=== PATIENT | female | born 2005 | race Caucasian/White ===

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

== ENCOUNTER 2025-03-12 07:18 | Emergency (ER) | payer OTHER, SELFPAY ==
--- OUTSIDE RECORDS SUMMARY | 2025-03-09 09:30 | XMS_ITS | Encounter Summary ---
Author Organization [facility] Address [address] [place] [address] Care Team Providers Care Lawn Care Specialist Name Role Phone Christian Soto MD Primary Care Provider Reason for Visit * Reason Comments Consult New patient * Consultation (Routine) - Authorized Specialty Diagnoses / Procedures Referred By Jostin madrigal Referred To Contact Family Nutrition Services / Bariatrics Diagnoses Obesity without serious comorbidity with body mass index (BMI) greater than 99th percentile for age in pediatric patient Sherry Long MD [address] [place] [address] Phone: tel: fax: Bariatric Surgery - [address] [address] Phone: tel: fax: Referral ID Status Reason Start Date Expiration Date Visits Requested Visits Authorized [id number] Authorized Specialty Services Required 06/03/2024 06/03/2025 1 1 Encounter Details Date Type Department Care Team ([facility] st Contact Info) Description 03/09/2025 9:30 AM EST Consult Bariatric Surgery - [address] [address] Nico Garrison MD [address] [place] [phone] Class 2 obesity due to excess calories with body mass index (BMI) of 36.0 to 36.9 in adult, unspecified whether serious comorbidity present (Primary Dx) Social History Tobacco Use Types Packs/Day Years Used Date Smoking Tobacco: Never Smokeless Tobacco: Never Comments No Sex and Gender Information Value Date Recorded Sex Assigned at Not on file Legal Sex Female 1:35 PM EST Gender Identity Not on file Sexual Orientation Not on file documented as of this encounter Last Filed Vital Signs Vital Sign Reading Time Taken Comments Blood Pressure 133/73 03/09/2025 9:48 AM EST Pulse 85 03/09/2025 9:48 AM EST Temperature 36.8 C (98.2 F) 03/09/2025 9:48 AM EST Respiratory Rate - - Oxygen Saturation - - Inhaled Oxygen Concentration - - Weight 98 kg (216 lb) 03/09/2025 9:48 AM EST Height 163.8 cm (5' 4.5 ) 03/09/2025 9:48 AM EST Body Mass Index 36.5 03/09/2025 9:48 AM EST documented in this encounter Plan of Treatment Upcoming Encounters Date Type Department Care Team (Late st Contact Info) Description 06/06/2025 8:00 AM EDT Office Visit Adult Medicine [facility] [address] [place] [address] Gunjan Medina PA [address] [place], [place] 09/19/2025 3:30 PM EDT Office Visit Bariatric Surgery - [address] [place] [address] Nico Garrison MD [address] [place] [phone] documented as of this encounter Results * Thyroid stimulating hormone (03/09/2025 10:06 AM EST) TSH 2.35 0.40 - 4.00 mcIU/mL 03/09/2025 2:36 PM EST [facility] Blood Venous blood specimen / Unknown Venipuncture / Unknown 03/09/2025 10:06 AM EST 03/09/2025 10:06 AM EST Nico Garrison MD LAB BLOOD ORDERABLES Final R esult [facility] [address] [place] [address], [place] [phone] * Hemoglobin A1c (03/09/2025 10:06 AM EST) [facility] Hemoglobin A1C 4.5 <6.5 % LAB CHEMISTRY METHOD 03/09/2025 3:16 PM EST [facility] Mean Bld Glu Estim. 82 mg/dL LAB CHEMISTRY METHOD 03/09/2025 3:16 PM [facility] Blood Venous blood specimen / Unknown Venipuncture / Unknown 03/09/2025 10:06 AM EST 03/09/2025 10:06 AM EST us Nico Garrison MD LAB BLOOD ORDERABLES Final R esult Performing Organization Address [facility]/ZIP Co de Phone Number [facility] [address] [place] [address], [place] [phone] * Comprehensive metabolic panel (03/09/2025 10:06 AM EST) [facility] Sodium 139 133 - 145 mmol/L 03/09/2025 2:40 PM [facility] Potassium 4.2 3.5 - 5.5 mmol/L 03/09/2025 2:40 PM [facility] Chloride 105 96 - 110 mmol/L 03/09/2025 2:40 PM [facility] CO2 25 21 - 32 mmol/L 03/09/2025 2:40 PM [facility] Anion Gap 9 3 - 11 03/09/2025 2:40 PM [facility] Glucose 81 70 - 100 mg/dL 03/09/2025 2:40 PM [facility] BUN 11 5 - 25 mg/dL 03/09/2025 2:40 PM [facility] Creatinine 0.88 0.50 - 1.10 mg/dL 03/09/2025 2:40 PM [facility] eGFR 97 >=60 mL/min/1. 73m2 03/09/2025 2:40 PM [facility] Comment:Calculation based on the Chronic Kidney Disease Epidemiology Collaboration (CKD-EPI) equation refit without adjustment for race. BUN/Creatinine Ratio 12.5 03/09/2025 2:40 PM [facility] Calcium 8.8 8.5 - 10.5 mg/dL 03/09/2025 2:40 PM [facility] AST (SGOT) 23 10 - 42 unit/L 03/09/2025 2:40 PM [facility] ALT (SGPT) 21 10 - 60 unit/L 03/09/2025 2:40 PM [facility] Alkaline Phosphatase 66 42 - 121 unit/L 03/09/2025 2:40 PM [facility] Total Protein 7.1 6.0 - 8.0 g/dL 03/09/2025 2:40 PM [facility] Albumin 4.3 3.2 - 5.0 g/dL 03/09/2025 2:40 PM [facility] Total Bilirubin 0.4 0.0 - 1.4 mg/dL 03/09/2025 2:40 PM [facility] Blood Venous blood specimen / Unknown Venipuncture / Unknown 03/09/2025 10:06 AM EST 03/09/2025 10:06 AM EST us Nico Garrison MD LAB BLOOD ORDERABLES Final R esult [facility] [address] [place] [address], [place] [phone] * Lipid panel with reflex to direct LDL (03/09/2025 10:06 AM EST) Cholesterol 128 0 - 200 mg/dL 03/09/2025 2:40 PM [facility] Triglycerides 76 0 - 150 mg/dL 03/09/2025 2:40 PM [facility] HDL 43 >=40 mg/dL 03/09/2025 2:40 PM [facility] LDL Calculated 70 0 - 100 mg/dL 03/09/2025 2:40 PM [facility] Comment:Estimated LDL is rudolph culated using the Friedewald equation: Total cholesterol - HDL cholesterol - (Triglycerides/5) VLDL Cholesterol Rudolph 15.2 mg/dL 03/09/2025 2:40 PM [facility] Non HDL Chol. (LDL+VLDL) 85 <145 mg/dL 03/09/2025 2:40 PM [facility] Chol/HDL Ratio 3.0 0.0 - 4.4 03/09/2025 2:40 PM [facility] Blood Venous blood specimen / Unknown Venipuncture / Unknown 03/09/2025 10:06 AM EST 03/09/2025 10:06 AM EST us Nico Garrison MD LAB BLOOD ORDERABLES Final R esult [facility] [address] [place] [address], documented in this encounter Visit Diagnoses Diagnosis Class 2 obesity due to excess calories with body mass index (BMI) of 36.0 to 36.9 in adult, unspecified whether serious comorbidity present- Primary documented in this encounter Orders Outpatient Referral Count Last Ordered Date Fir st Ordered Date AMB REFERRAL TO WEIGHT MANAGEMENT 1 025 documented in this encounter Additional Health Concerns Assessment Noted Time PHQ-9 Depression Total Score: 16 025 10:00 AM EDT documented as of this encounter Care Teams Lawn Care Specialist Relationship Specialty Start Date End Date Christian Soto MD [address] [place] [phone] PCP - General Internal Medicine 12/19/24 documented as of this encounter
--- OUTSIDE RECORDS SUMMARY | 2025-03-09 10:05 | XMS_ITS | Encounter Summary ---
Author Organization [facility] Address [address] [place] [address] Care Team Providers Care Portuguese Tutor Name Role Phone Christian Soto MD Primary Care Provider Encounter Details Date Type Department Care Team (Late Contact Info) Description 03/09/2025 10:05 AM EST Lab Draw Station - [facility] [address] [place] [address] Class 2 obesity due to excess calories with body mass index (BMI) of 36.0 to 36.9 in adult, unspecified whether serious comorbidity present Social History Tobacco Use Types Packs/Day Years Used Date Smoking Tobacco: Never Smokeless Tobacco: Never Comments No Sex and Gender Information Value Date Recorded Sex Assigned at Not on file Legal Sex Female 1:35 PM EST Gender Identity Not on file Sexual Orientation Not on file documented as of this encounter Plan of Treatment Upcoming Encounters Date Type Department Care Team (Late st Contact Info) Description 06/06/2025 8:00 AM EDT Office Visit Adult Medicine [address] [phone] Gnujan Medina PA [address] [place] [address] 09/19/2025 3:30 PM EDT Office Visit Bariatric Surgery - [place] [address] [facility] [address] [place] [address] Nico Garrison MD [address] [place] [phone] documented as of this encounter Procedures Procedure Name Priority Date/Time Associated Diagnosis Comments LIPID PANEL WITH REFLEX TO DIRECT LDL Routine 03/09/2025 10:06 AM EST Class 2 obesity due to excess calories with body mass index (BMI) of 36.0 to 36.9 in adult, unspecified whether serious comorbidity present THYROID STIMULATING HORMONE Routine 03/09/2025 10:06 AM EST Class 2 obesity due to excess calories with body mass index (BMI) of 36.0 to 36.9 in adult, unspecified whether serious comorbidity present HEMOGLOBIN A1C Routine 03/09/2025 10:06 AM EST Class 2 obesity due to excess calories with body mass index (BMI) of 36.0 to 36.9 in adult, unspecified whether serious comorbidity present COMPREHENSIVE METABOLIC PANEL Routine 03/09/2025 10:06 AM EST Class 2 obesity due to excess calories with body mass index (BMI) of 36.0 to 36.9 in adult, unspecified whether serious comorbidity present documented in this encounter Results * Lipid panel with reflex to direct LDL (03/09/2025 10:06 AM EST) Cholesterol 128 0 - 200 mg/dL 03/09/2025 2:40 PM [facility] Triglycerides 76 0 - 150 mg/dL 03/09/2025 2:40 PM [facility] HDL 43 >=40 mg/dL 03/09/2025 2:40 PM [facility] LDL Calculated 70 0 - 100 mg/dL 03/09/2025 2:40 PM [facility] Comment:Estimated LDL is rudolph culated using the Friedewald equation: Total cholesterol - HDL cholesterol - (Triglycerides/5) VLDL Cholesterol Rudolph 15.2 mg/dL 03/09/2025 2:40 PM [facility] Non HDL Chol. (LDL+VLDL) 85 <145 mg/dL 03/09/2025 2:40 PM [facility] Chol/HDL Ratio 3.0 0.0 - 4.4 03/09/2025 2:40 PM [facility] Blood Venous blood specimen / Unknown Venipuncture / Unknown 03/09/2025 10:06 AM EST 03/09/2025 10:06 AM EST us Nico Garrison MD LAB BLOOD ORDERABLES Final R esult [facility] [address] [place] [address], * Comprehensive metabolic panel (03/09/2025 10:06 AM EST) Sodium 139 133 - 145 mmol/L 03/09/2025 2:40 PM [facility] Potassium 4.2 3.5 - 5.5 mmol/L 03/09/2025 2:40 PM [facility] Chloride 105 96 - 110 mmol/L 03/09/2025 2:40 PM [facility] CO2 25 21 - 32 mmol/L 03/09/2025 2:40 PM [facility] Anion Gap 9 3 - 11 03/09/2025 2:40 PM [facility] Glucose 81 70 - 100 mg/dL 03/09/2025 2:40 PM [facility] BUN 11 5 - 25 mg/dL 03/09/2025 2:40 PM [facility] Creatinine 0.88 0.50 - 1.10 mg/dL 03/09/2025 2:40 PM [facility] eGFR 97 >=60 mL/min/1. 73m2 03/09/2025 2:40 PM [facility] Comment:Calculation based on the Chronic Kidney Disease Epidemiology Collaboration (CKD-EPI) equation refit without adjustment for race. BUN/Creatinine Ratio 12.5 03/09/2025 2:40 PM [facility] Calcium 8.8 8.5 - 10.5 mg/dL 03/09/2025 2:40 PM [facility] AST (SGOT) 23 10 - 42 unit/L 03/09/2025 2:40 PM [facility] ALT (SGPT) 21 10 - 60 unit/L 03/09/2025 2:40 PM [facility] Alkaline Phosphatase 66 42 - 121 unit/L 03/09/2025 2:40 PM [facility] Total Protein 7.1 6.0 - 8.0 g/dL 03/09/2025 2:40 PM [facility] Albumin 4.3 3.2 - 5.0 g/dL 03/09/2025 2:40 PM [facility] Total Bilirubin 0.4 0.0 - 1.4 mg/dL 03/09/2025 2:40 PM [facility] Blood Venous blood specimen / Unknown Venipuncture / Unknown 03/09/2025 10:06 AM EST 03/09/2025 10:06 AM EST us Nico Garrison MD LAB BLOOD ORDERABLES Final R esult [facility] [address] [place] [address], * Hemoglobin A1c (03/09/2025 10:06 AM EST) Hemoglobin A1C 4.5 <6.5 % LAB CHEMISTRY METHOD 03/09/2025 3:16 PM [facility] Mean Bld Glu Estim. 82 mg/dL LAB CHEMISTRY METHOD 03/09/2025 3:16 PM [facility] Blood Venous blood specimen / Unknown Venipuncture / Unknown 03/09/2025 10:06 AM EST 03/09/2025 10:06 AM EST us Nico Garrison MD LAB BLOOD ORDERABLES Final R esult Performing Organization Address City/[facility]/ZIP Co de Phone Number [facility] [address] [place] [address], [place] [phone] * Thyroid stimulating hormone (03/09/2025 10:06 AM EST) TSH 2.35 0.40 - 4.00 mcIU/mL 03/09/2025 2:36 PM EST [facility] Blood Venous blood specimen / Unknown Venipuncture / Unknown 03/09/2025 10:06 AM EST 03/09/2025 10:06 AM EST Nico Garrison MD LAB BLOOD ORDERABLES Final R esult Performing Organization Address City/[facility]/ZIP Co de Phone Number [facility] [address] [place] [address], [place] [phone] documented in this encounter Visit Diagnoses Diagnosis Class 2 obesity due to excess calories with body mass index (BMI) of 36.0 to 36.9 in adult, unspecified whether serious comorbidity present documented in this encounter Additional Health Concerns Assessment Noted Time PHQ-9 Depression Total Score: 16 0314/2 025 10:00 AM EDT documented as of this encounter Care Teams Portuguese Tutor Relationship Specialty Start Date End Date Christian Soto MD [address] [place] [phone] PCP - General Internal Medicine 12/19/24 documented as of this encounter
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
[2025-03-12 07:22] VITALS: BP 118/55; PULSE 78; RESP 16; TEMP 35.8; O2SAT 100; BMI 45.0
[2025-03-12 07:34] VITALS: BP 118/64; PULSE 84; RESP 16; TEMP 36.8; O2SAT 99
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
--- OUTSIDE RECORDS SUMMARY | 2025-03-12 08:06 | XMS_ITS ---
Author Name [facility] Organization Unknown Care Team Organization Name Specialty Phone Email Start Date End Da te [facility] Sherry Long Primary Care 12/24/20222023 [facility] Travis Davila Primary Care 05/28/20222023 [facility] Jeanne Patel Primary Care 01/28/20222023
--- OUTSIDE RECORDS SUMMARY | 2025-03-12 08:06 | XMS_ITS | Clinical Summary ---
Author Organization [facility] Address [address] [place] [phone] Phone Care Team Providers Care Wafer Line Worker Name Role Phone Unavailable Primary Care Provider [...] Vaccine (1 of 2 - Standard) 2021 Meningococcal Vaccine (1 - 2 -dose series) 2021 Influenza Vaccines (#1) 2024 11/21/19 16, 03/14/2015, 12/16/2013, Additional history exists COVID-19 Vaccine ( - 2024-2 6 season) 2024 Hepatitis B Vaccines Completed 05/08/2006, 01/21/2006, 2005, Additional history exists HIB Vaccines Completed 10/16/2006, 04/23, 01/21/2006, Additional history exists Hepatitis A Vaccines Completed 10/01/2007, 08/06/19 07 IPV Vaccines Completed 06/11/2010, 04/23, 01/21/2006, Additional history exists MMR Vaccines Completed 06/11/2010, 08/05/2006 Pneumococcal Vaccine Completed 06/11/2010, 10/16/2006, 05/08/2006, Additional history exists Varicella Vaccines Completed 06/11/2010, 08/05/2006 Insurance [facility] NON PCC
--- OUTSIDE RECORDS SUMMARY | 2025-03-12 08:06 | XMS_ITS | Encounter Summary ---
Author Organization [facility] Address [address] [place] [phone] Care Team Providers Care Straightening Machine Operator Name Role Phone Christian Soto MD Primary Care Provider Encounter Details Date Type Department Care Team (Late Contact Info) Description 03/10/2025 Results Follow-Up Adult [address] [phone] Christian Soto MD [address] [place] [address] Social History Tobacco Use Types Packs/Day Years Used Date Smoking Tobacco: Never Smokeless Tobacco: Never Comments No Sex and Gender Information Value Date Recorded Sex Assigned at Not on file Legal Sex Female 1:35 PM EST Gender Identity Not on file Sexual Orientation Not on file documented as of this encounter Plan of Treatment Upcoming Encounters Date Type Department Care Team (Late Contact Info) Description 06/06/2025 8:00 AM EDT Office Visit Adult [address] [phone] Gunjan Medina PA [address] [place], [place] 09/19/2025 3:30 PM EDT Office Visit Bariatric Surgery - [address] [phone] Nico Garrison MD [address] [place] [phone] documented as of this encounter Visit Diagnoses Not on filedocumented in this encounter Additional Health Concerns Assessment Noted Time PHQ-9 Depression Total Score: 16 06/03/ 025 10:00 AM EDT documented as of this encounter Care Teams Straightening Machine Operator Relationship Specialty Start Date End Date Christian Soto MD [address] [place] [address] PCP - General Internal Medicine 12/19/24 documented as of this encounter
--- OUTSIDE RECORDS SUMMARY | 2025-03-12 08:06 | XMS_ITS | Encounter Summary ---
Author Organization [facility] Address [address] [place] [phone] Phone Care Team Providers Care Quick Mixer Operator Name Role Phone Vivienne Jenkins NP Primary Care Provider Nurys tinoco Encounter Details Date Type Department Care Team (Late st Contact Info) Description 12/26/2015 Documentation EM Family Medicine [facility] [place] [address] Family Medicine, Physician [facility] [place] [address] Social History Tobacco Use Types Packs/Day Years [...] on filedocumented in this encounter Care Teams Quick Mixer Operator Relationship Specialty Start Date End Date Vivienne Jenkins NP PCP - General 10/31/16 06/04/22 documented as of this encounter
--- OUTSIDE RECORDS SUMMARY | 2025-03-12 08:06 | XMS_ITS | Encounter Summary ---
Author Organization [facility] Address [address] [place] [phone] Phone Care Team Providers Care Boiler Water Tester Name Role Phone Vivienne Jenkins NP Primary Care Provider Nurys tinoco Encounter Details Date Type Department Care Team (Late st Contact Info) Description 03/29/2014 Documentation EM Family Medicine [facility] [place], [place] [phone] Family Medicine, Physician [facility] [place] [address] Social History Tobacco Use Types Packs/Day Years [...] on filedocumented in this encounter Care Teams Boiler Water Tester Relationship Specialty Start Date End Date Vivienne Jenkins NP PCP - General 10/31/16 06/04/22 documented as of this encounter
--- OUTSIDE RECORDS SUMMARY | 2025-03-12 08:06 | XMS_ITS | Encounter Summary ---
Author Organization [facility] Address [address] [place] [phone] Phone Care Team Providers Care Atomizer Assembler Name Role Phone Vivienne Jenkins NP Primary Care Provider Nurys tinoco Encounter Details Date Type Department Care Team (Late st Contact Info) Description 08/18/2009 Documentation EM Family Medicine [facility] [place] [address] Family Medicine, Physician [facility] [place] [address] Social History Tobacco Use Types Packs/Day Years [...] on filedocumented in this encounter Care Teams Atomizer Assembler Relationship Specialty Start Date End Date Vivienne Jenkins NP PCP - General 10/31/16 06/04/22 documented as of this encounter
--- OUTSIDE RECORDS SUMMARY | 2025-03-12 08:06 | XMS_ITS | Encounter Summary ---
Author Organization [facility] Address [address] [place] [phone] Phone Care Team Providers Care Life Agent Name Role Phone Vivienne Jenkins NP Primary Care Provider Nurys tinoco Encounter Details Date Type Department Care Team (Late st Contact Info) Description 11/30/2015 Documentation EM Family Medicine [facility] [place], [place] [phone] Family Medicine, Physician [facility] [place] [address] Social History Tobacco Use Types Packs/Day Years [...] on filedocumented in this encounter Care Teams Life Agent Relationship Specialty Start Date End Date Vivienne Jenkins NP PCP - General 10/31/16 06/04/22 documented as of this encounter
--- OUTSIDE RECORDS SUMMARY | 2025-03-12 08:06 | XMS_ITS | Encounter Summary ---
Author Organization [facility] Address [address] [place] [address] Phone Care Team Providers Care Pull Out Operator Name Role Phone Vivienne Jenkins NP Primary Care Provider Nurys tinoco Encounter Details Date Type Department Care Team (Late st Contact Info) Description 09/07/2012 Documentation EM Family Medicine [facility] [place], [place] [phone] Family Medicine, Physician [facility] [place] [address] Social History Tobacco Use Types Packs/Day Years [...] on filedocumented in this encounter Care Teams Pull Out Operator Relationship Specialty Start Date End Date Vivienne Jenkins NP PCP - General 10/31/16 06/04/22 documented as of this encounter
--- OUTSIDE RECORDS SUMMARY | 2025-03-12 08:06 | XMS_ITS | Encounter Summary ---
Author Organization [facility] Address [address] [place] [address] Phone Care Team Providers Care Mica Spreader Name Role Phone Vivienne Jenkins NP Primary Care Provider Nurys tinoco Encounter Details Date Type Department Care Team (Late st Contact Info) Description 12/26/2015 Documentation EM Family Medicine [facility] [place] [address] Family Medicine, Physician [facility] [address] Social History Tobacco Use Types Packs/Day Years [...] on filedocumented in this encounter Care Teams Mica Spreader Relationship Specialty Start Date End Date Vivienne Jenkins NP PCP - General 10/31/16 06/04/22 documented as of this encounter
--- OUTSIDE RECORDS SUMMARY | 2025-03-12 08:06 | XMS_ITS | Encounter Summary ---
Author Organization [facility] Address [id number] [place] [phone] Care Team Providers Care Darkroom Worker Name Role Phone Christian Soto MD Primary Care Provider Encounter Details Date Type Department Care Team (Late Contact Info) Description 01/19/2025 Results Follow-Up Adult [address] [phone] Christian Soto MD [address] [place] [address] Social History Tobacco Use Types Packs/Day Years [...] 06/06/2025 8:00 AM EDT Office Visit Adult [address] [phone] Gunjan Medina PA [address] [place], [place] 09/19/2025 3:30 PM EDT Office Visit Bariatric Surgery - [address] [phone] Nico Garrison MD [address] [place] [phone] documented as of this encounter Visit Diagnoses Not on filedocumented in this encounter Additional Health Concerns Assessment Noted Time PHQ-9 Depression Total Score: 16 06/03/ 025 10:00 AM EDT documented as of this encounter Care Teams Darkroom Worker Relationship Specialty Start Date End Date Christian Soto MD [address] [place] [phone] PCP - General Internal Medicine 12/19/24 documented as of this encounter
--- OUTSIDE RECORDS SUMMARY | 2025-03-12 08:06 | XMS_ITS | Clinical Summary ---
Author Organization [address] Address [address] [place] [phone] Phone Care Team Providers Care Electric Truck Crane Operator Name Role Phone Christian Soto MD Primary Care Provider Allergies Active Allergy Reactions Criticality Noted Date Comments Pineapple Swelling 09/21/2017 Medications EPINEPHrine (EpiPen 2-Wilfred) 0.3 mg/0.3 mL injection Inject 0.3 mL (0.3 mg total) into the thigh if needed for anaphylaxis . 2 each 06/03/2024 Active ondansetron (ZOFRAN) 4 mg tablet Take 1 tablet (4 mg total) by mouth every 8 (eight) hours if needed for nausea or vomiting. 90 tablet 01/06/2025 Active Active Problems Problem Noted Date Diagnosed [...] should be seen in [facility] Hgba1c 5.4 on 11/07 Constipation 09/21/2017 Overview (05/25/2024): 11/07 - occastionally only now, miralax prn 03/10/16 - Miralax. Increase fiber in diet, encourage fluids Assessment & Plan (06/03/2024 11:29 AM EDT): Continues to have constipation. Request refill for MiraLAX. Encounters Date Type Department Care Team Description 03/10/2025 Results Follow-Up Adult [address] [phone] Christian Soto MD 03/09/2025 10:05 AM EST Lab Draw Station - [address] [place] [address] 175 [facility] [address] [place] [phone] Class 2 obesity due to excess calories with body mass index (BMI) of 36.0 to 36.9 in adult, unspecified whether serious comorbidity present 03/09/2025 9:30 AM EST Consult Bariatric Surgery - [place] [address] [facility] [address] [place] [phone] Nico Garrison MD Class 2 obesity due to excess calories with body mass index (BMI) of 36.0 to 36.9 in adult, unspecified whether serious comorbidity present (Primary Dx) 01/19/2025 Results Follow-Up Adult [address] [phone] Christian Soto MD 01/19/2025 Telephone Adult Medicine [address] [phone] Christian Soto MD 01/18/2025 9:09 AM EDT - 01/18/2025 11:59 PM EDT Hospital Encounter [facility] Nuclear Medicine [address] [place] [phone] Epigastric pain; RUQ abdominal pain; Nausea and vomiting, unspecified vomiting type Discharge Disposition: Home or Self Care 01/06/2025 10:30 AM EDT Office Visit Adult Medicine [address] [phone] Christian Soto MD Epigastric pain (Primary Dx); RUQ abdominal pain; Nausea and vomiting, unspecified vomiting type; Class 2 obesity due to excess calories with body mass index (BMI) of 37.0 to 37.9 in adult, unspecified whether serious comorbidity present 12/19/2024 Telephone Adult Medicine [address] [phone] Christian Soto MD 12/15/2024 Telephone Pediatrics [address] [phone] Sherry Long MD from Last 3 Months Immunizations Immunization Administration Dates Next Due DTaP (Infanrix) 6wks to less than 7yo ,10/16/2006,05/08/2006,01/21,2005 IIzO-MWC-DHE (Pentacel) 2mo to less than 5yo 10/16/2006,05/08/2006,01/21/2006,09/24 [...] eservative (Fluzone; Afluria) 6mo and older 11/21/2015,03/14/2015,12/16/2013,07/20,04/14/2012,06/24/2011,01/10/2009 ,12/30/2007,05/20/2007,01/15/2007,1103/2005 MMR, measles mumps and rubel la Live [...] any issues. PCP requested a copy of IEP Acanthosis nigricans 09/21/2017 DX:Acanthos is nigricans; COMMENT: 11/21/15 ? Insulin resistance - should be seen in [facility] BMI (body mass index), pedia tric, > [...] 08/2014 Bactrim, 2011 ? Pyelonephritis- seen at [facility]. Ceftriaxone. Never went to see Urologist. Was referred to [facility]ist but never made it there either [...] pain 12/14/2017 DX:Chronic an kle pain; COMMENT: 9/18 referred to elyse Willis on 11/19/2017 UTI (urinary tract infection) 09/21/2017 DX :UTI (urinary tract infection); COMMENT: 11/07 no UTI in past 3+ yrs 08/2014 Bactrim, 2012 ? Pyelonephritis- seen at [facility]. Ceftriaxone. Never went to see Urologist. Was referred to [facility]ist but never made it there either [...] Sister 2 Desaray Relation Name Status Comments [place] Ha Alive Father Maternal Grandmother Mother Mother's side M Aunt Sister 1 Casandr Alive Sister 2 Desaray Alive Social History Tobacco Use Types Packs/Day Years Used Date Smoking Tobacco: Never Smokeless Tobacco: Never Tobacco Cessation:Counseling Given: Not Answered Comments No Sex and Gender Information Value Date Recorded Sex Assigned at Not on file Legal Sex Female 1:35 PM EST Gender Identity Not on file Sexual Orientation Not on file Growth Chart Information Age Height Weight Nouljd-zpb-hryz th Percentile BMI Percentile Head Circum Head Circum Percentile Date 19 years 163.8 cm (5' 4.5 ) 98 kg (216 lb) 97.43%* 2024 19 years 162.6 cm (5' 4 ) 99.1 kg (218 lb 6.4 oz) 97.89%* 2024 18 years 163.1 cm (5' 4.21 ) [...] (176 lb 9.6 oz) 99.26%* 2017 * CDC (Girls, 2-20 Years) Last Filed Vital Signs Vital Sign Reading Time Taken Comments Blood Pressure 133/73 03/09/2025 9:48 AM EST Pulse 85 03/09/2025 9:48 AM EST Temperature 36.8 C (98.2 F) 03/09/2025 9:48 AM EST Respiratory Rate 15 01/06/2025 10:28 AM EDT Oxygen Saturation 98% 01/06/2025 10:28 AM EDT Inhaled Oxygen Concentration - - Weight 98 kg (216 lb) 03/09/2025 9:48 AM EST Height 163.8 cm (5' 4.5 ) 03/09/2025 9:48 AM EST Body Mass Index 36.5 03/09/2025 9:48 AM EST Plan of Treatment Upcoming Encounters Date Type Department Care Team (Late st Contact Info) Description 06/06/2025 8:00 AM EDT Office Visit Adult Medicine [facility] [address] [place], [place] [phone] Gunjan Medina PA [address] [place], [place] 09/19/2025 3:30 PM EDT Office Visit Bariatric Surgery - [address] [place] [phone] Nico Garrison MD [address] [place] [phone] Health Maintenance Due Date Last Done Comments Pneumococcal Vaccine: Pediatrics (0 to 5 Years) and At-Risk Patients (6 to 49 Years) (1 of 1 - PPSV23, PCV20, or PCV21) 07/17/2011 06/11/2010, 10/16/2006, 05/08/2006, Additional history exists [...] 11/04/2027 11/03/2017, 06/11/2010, 10/16/2006, Additional history exists RSV Immunization Adult Patients (1 - 1-dose 75+ series) 2080 Hepatitis B Vaccines Completed 05/08/2006, 05/08/2006, 01/21/2006, [...] in adult, unspecified whether serious comorbidity present NM HEPATOBILIARY SYSTEM IMAGING Routine 01/18/2025 11:02 AM EDT Epigastric pain RUQ abdominal pain Nausea and vomiting, unspecified vomiting type CHLAMYDIA TRACHOMATIS AND NEISSERIA GONORRHOEAE PCR Routine 06/03/2024 9:51 AM EDT Screening for STD (sexually transmitted disease) from Last 3 Months or Most Recently Relevant to Health Maintenance Results * Lipid panel with reflex to direct LDL (03/09/2025 10:06 AM EST) [facility] Signature Cholesterol 128 0 - 200 mg/dL 03/09/2025 2:40 PM EST [facility] Triglycerides 76 0 - 150 mg/dL 03/09/2025 2:40 PM EST [facility] HDL 43 >=40 mg/dL 03/09/2025 2:40 PM [facility] LDL Calculated 70 0 - 100 mg/dL 03/09/2025 2:40 PM EST [facility] Comment:Estimated LDL is rudolph culated using the Friedewald equation: Total cholesterol - HDL cholesterol - (Triglycerides/5) VLDL Cholesterol Rudolph 15.2 mg/dL 03/09/2025 2:40 PM [facility] Non HDL Chol. (LDL+VLDL) 85 <145 mg/dL 03/09/2025 2:40 PM [facility] Chol/HDL Ratio 3.0 0.0 - 4.4 03/09/2025 2:40 PM [facility] Blood Venous blood specimen / Unknown Venipuncture / Unknown 03/09/2025 10:06 AM EST 03/09/2025 10:06 AM EST us Nico Garrison MD LAB BLOOD ORDERABLES Final R esult [facility] [address] [place] [address], * Thyroid stimulating hormone (03/09/2025 10:06 AM EST) TSH 2.35 0.40 - 4.00 mcIU/mL 03/09/2025 2:36 PM EST [facility] Blood Venous blood specimen / Unknown Venipuncture / Unknown 03/09/2025 10:06 AM EST 03/09/2025 10:06 AM EST us Nico Garrison MD LAB BLOOD ORDERABLES Final R esult [facility] [address] [place] [address], [place] [phone] * Hemoglobin A1c (03/09/2025 10:06 AM EST) [facility] Hemoglobin A1C 4.5 <6.5 % LAB CHEMISTRY METHOD 03/09/2025 3:16 PM [facility] Mean Bld Glu Estim. 82 mg/dL LAB CHEMISTRY METHOD 03/09/2025 3:16 PM [facility] Blood Venous blood specimen / Unknown Venipuncture / Unknown 03/09/2025 10:06 AM EST 03/09/2025 10:06 AM EST Nico Garrison MD LAB BLOOD ORDERABLES Final R esult [facility] [address] [place] [address], [place] [phone] * Comprehensive metabolic panel (03/09/2025 10:06 AM EST) [facility] Sodium 139 133 - 145 mmol/L 03/09/2025 2:40 PM [facility] Potassium 4.2 3.5 - 5.5 mmol/L 03/09/2025 2:40 PM [facility] Chloride 105 96 - 110 mmol/L 03/09/2025 2:40 PM [facility] CO2 25 21 - 32 mmol/L 03/09/2025 2:40 PM [facility] Anion Gap 9 3 - 11 03/09/2025 2:40 PM [facility] Glucose 81 70 - 100 mg/dL 03/09/2025 2:40 PM [facility] BUN 11 5 - 25 mg/dL 03/09/2025 2:40 PM [facility] Creatinine 0.88 0.50 - 1.10 mg/dL 03/09/2025 2:40 PM [facility] eGFR 97 >=60 mL/min/1. 73m2 03/09/2025 2:40 PM [facility] Comment:Calculation based on the Chronic Kidney Disease Epidemiology Collaboration (CKD-EPI) equation refit without adjustment for race. BUN/Creatinine Ratio 12.5 03/09/2025 2:40 PM [facility] Calcium 8.8 8.5 - 10.5 mg/dL 03/09/2025 2:40 PM [facility] AST (SGOT) 23 10 - 42 unit/L 03/09/2025 2:40 PM [facility] ALT (SGPT) 21 10 - 60 unit/L 03/09/2025 2:40 PM [facility] Alkaline Phosphatase 66 42 - 121 unit/L 03/09/2025 2:40 PM [facility] Total Protein 7.1 6.0 - 8.0 g/dL 03/09/2025 2:40 PM [facility] Albumin 4.3 3.2 - 5.0 g/dL 03/09/2025 2:40 PM [facility] Total Bilirubin 0.4 0.0 - 1.4 mg/dL 03/09/2025 2:40 PM [facility] Blood Venous blood specimen / Unknown Venipuncture / Unknown 03/09/2025 10:06 AM EST 03/09/2025 10:06 AM EST us Nico Garrison MD LAB BLOOD ORDERABLES Final R esult [facility] [address] [place] [address], [place] [phone] * NM Hepatobiliary System Imaging (01/18/2025 11:02 AM EDT) Anatomical Region Laterality Modality Body Nuclear Medicine 01/18/2025 3:37 PM EDT Impressions 01/18/2025 3:39 PM EDT Impression: No evidence of cystic or common bile duct obstruction. Telerad INESSA ([id number]) -------- FINAL REPORT -------- Dictated By: Jojo Naranjo Dictated Date: 01/18/2025 15:37 ET Assigned Physician: Jojo Naranjo Reviewed and Electronically Signed By: Jojo Naranjo Signed Date: 01/18/2025 15:39 ET Workstation ID: [id number] Transcribed By: Self Edit Transcribed Date: 01/18/2025 15:37 ET Narrative 01/18/2025 3:39 PM EDT History: Intermittent right upper quadrant pain. Technique: Continuous anterior imaging of the abdomen was performed for 60 minutes following the intravenous administration of 4.6 mCi technetium 99m Choletec. Findings: The initial image demonstrates a normal, homogeneous pattern of radiotracer distribution throughout the liver. Activity is seen within the bile ducts by 5 minutes, within the gallbladder by 5 minutes, and within the small bowel by 30 minutes. There is normal washout of hepatic activity. Procedure Note Jojo Naranjo MD - 01/18/2025 History: Intermittent right upper quadrant pain. Technique: Continuous anterior imaging of the abdomen was performed for 60minutes following the intravenous administration of 4.6 mCi technetium 99mCholetec. Findings: The initial image demonstrates a normal, homogeneous pattern ofradiotracer distribution throughout the liver. Activity is seen within thebile ducts by 5 minutes, within the gallbladder by 5 minutes, and withinthe small bowel by 30 minutes. There is normal washout of hepatic activity. IMPRESSION: Impression: No evidence of cystic or common bile duct obstruction. Telestacie WYLIE ([id number]) -------- FINAL REPORT -------- Dictated By: Jojo Naranjo Dictated Date: 01/18/2025 15:37 ET Assigned Physician: Jojo Naranjo Reviewed and Electronically Signed By: Jojo Naranjo Signed Date: 01/18/2025 15:39 ET Workstation ID: [id number] Transcribed By: Self Edit Transcribed Date: 01/18/2025 15:37 ET us Christian Soto MD IMG NM PROCEDURES Elizabeth l Result * (ABNORMAL) Chlamydia trachomatis and Neisseria gonorrhoeae molecular study (06/03/2024 9:51 AM EDT) Neisseria gonorrhoeae PCR Negative Negative LAB MOLECULAR DIAGNOSTICS METHOD 06/05/2024 3:16 PM EDT [facility] Chlamydia trachomatis PCR Positive(A) Negative LAB MOLECULAR DIAGNOSTICS METHOD 06/05/2024 3:16 PM EDT [facility] Swab Urine specimen from urethra / Unknown Non-blood Collection / Unknown 06/03/2024 9:51 AM EDT 06/03/2024 9:51 AM EDT us Sherry Long MD LAB MICROBIOLOGY - GENERAL CHAVEZ VALENTINO Final Result [facility] [address] [place] [address], from Last 3 Months or Most Recently Relevant to Health Maintenance Insurance [facility] [employer] Care Teams Electric Truck Crane Operator Relationship Specialty Start Date End Date Christian Soto MD [address] [place], [place] PCP - General Internal Medicine 12/19/24
--- OUTSIDE RECORDS SUMMARY | 2025-03-12 08:06 | XMS_ITS | Encounter Summary ---
Author Organization [facility] Address [address] [place] [phone] Phone Care Team Providers Care Publication Manager Name Role Phone Vivienne Jenkins NP Primary Care Provider Nurys tinoco Encounter Details Date Type Department Care Team (Late st Contact Info) Description 03/28/2014 Documentation EM Family Medicine [facility] [place], [place] [phone] Family Medicine, Physician [facility] [place] [address] Social History Tobacco Use Types Packs/Day Years [...] on filedocumented in this encounter Care Teams Publication Manager Relationship Specialty Start Date End Date Vivienne Jenkins NP PCP - General 10/31/16 06/04/22 documented as of this encounter
--- OUTSIDE RECORDS SUMMARY | 2025-03-12 08:06 | XMS_ITS | Encounter Summary ---
Author Organization [facility] Address [address] [place] [phone] Phone Care Team Providers Care Coal Digger Name Role Phone Vivienne Jenkins NP Primary Care Provider Nurys tinoco Encounter Details Date Type Department Care Team (Late st Contact Info) Description 11/06/2016 Conversion Encounter [facility] - [address] [address] Social History Tobacco Use Types Packs/Day Years [...] on filedocumented in this encounter Care Teams Coal Digger Relationship Specialty Start Date End Date Vivienne Jenkins NP PCP - General 10/31/16 06/04/22 documented as of this encounter
--- NOTE | 2025-03-12 09:34 | PC.NURSE ---
Patient medicated per the MAR for 910 pain. Patient resting quietly, call brenner within reach. Respirations even and unlabored. No signs of distress. Family at the bedside.
[2025-03-12 09:36] LABS: UPreg QC Valid YES
[2025-03-12 09:38] VITALS: BP 116/53; PULSE 67; RESP 18; TEMP 36.7; O2SAT 100
[2025-03-12 10:53] VITALS: BP 116/53; PULSE 67; RESP 18; TEMP 36.7; O2SAT 100
== END 2025-03-12 10:54 | disposition home or self-care (01) ==
PROVIDERS: Registered Nurse Emergency; Emergency Provider Emergency Medicine Emergency Medical Services; PCP Nurse Practitioner Pediatrics
DX: S16.1XXA Strain of muscle, fascia and tendon at neck level, initial encounter (principal); S39.012A Strain of muscle, fascia and tendon of lower back, initial encounter; S70.12XA Contusion of left thigh, initial encounter; S80.12XA Contusion of left lower leg, initial encounter; V43.62XA Car passenger injured in collision with other type car in traffic accident, initial encounter; Y93.89 Activity, other specified; Y92.410 Unspecified street and highway as the place of occurrence of the external cause; Y99.9 Unspecified external cause status
CPT/HCPCS: 70450; 71046; 72072; 72100; 72125; 73552; 73590; 81025; 99284

== ENCOUNTER → 2025-03-12 08:19 | Outpatient (BNV) | payer OTHER, SELFPAY | PROVIDERS: Emergency Provider Emergency Medicine Emergency Medical Services; PCP Nurse Practitioner Pediatrics; Visit Provider Radiology Diagnostic Radiology | DX: M54.2 Cervicalgia (principal); S06.6X9A Traumatic subarachnoid hemorrhage with loss of consciousness of unspecified duration, initial encounter; M54.6 Pain in thoracic spine; M54.50 Low back pain, unspecified; R07.9 Chest pain, unspecified; M79.652 Pain in left thigh; M79.662 Pain in left lower leg; V89.2XXA Person injured in unspecified motor-vehicle accident, traffic, initial encounter | CPT/HCPCS: 70450; 71046; 72072; 72100; 72125; 73552; 73590 ==

== ENCOUNTER 2025-03-19 15:02 | Emergency (ER) | payer OTHER, SELFPAY ==
--- NOTE | ~2025-03-19 | CT_ITS ---
CLINICAL HISTORY: chest wall pain CT chest without contrast Comparison: CR - XR CHEST 2V - 03/12/25 08:48 EST Findings: The heart size is normal. The visualized thyroid and mediastinum are unremarkable. The lungs are clear. The visualized upper abdomen is unremarkable. No acute fractures. IMPRESSION: 1. Unremarkable chest CT. This document has been electronically signed by: Morenita Aden MD on 03/19/2025 19:13:04
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
[2025-03-19 15:16] VITALS: BP 117/58; PULSE 70; RESP 16; TEMP 36.2; O2SAT 99; BMI 37.2
--- NOTE | 2025-03-19 15:17 | ECG_ITS ---
Test Reason : chest pain Blood Pressure : */* mmHG Vent. Rate : 74 BPM Atrial Rate : 74 BPM P-R Int : 122 ms QRS Dur : 76 ms QT Int : 372 ms P-R-T Axes : 19 23 21 degrees QTcB Int : 412 ms Normal sinus rhythm Normal ECG No previous ECGs available Referred By: Yolanda Landa Electronically Signed By: MYRANDA ABRAHAM
[2025-03-19 15:34] LABS: MANUAL DIFF FLAG NO
[2025-03-19 15:36] LABS: Hematocrit 34.9 % (37.0-47.0); Hemoglobin 11.4 g/dl (12.0-16.0); Imm Gran Abs Auto 0.01 X10*3/uL (0.00-0.03); Imm Gran Pct Auto 0.1 % (0.0-0.4); Lymphocytes Absolute Auto 2.9 X10*3/uL (1.2-4.9); Mean Corpuscular HGB Conc 32.7 g/dl (31.0-35.0); Mean Corpuscular Hemoglobin 27.4 pg (27.0-33.0); Mean Corpuscular Volume 83.9 fL (80.0-98.0); NRBC Abs Auto 0.000 X10*3/uL (0.0-0.012); NRBC Pct Auto 0.0 /100WBC (0.0-0.2); Platelet Count 264 X10*3/uL (160-400); Red Blood Count 4.16 X10*6/uL (4.20-5.50); White Blood Count 7.1 X10*3/uL (4.8-10.8)
[2025-03-19 15:55] LABS: Alanine Aminotransferase 19 U/L (0-31); Albumin Level 4.3 g/dL (3.5-5.0); Alkaline Phosphatase 68 U/L (39-117); Anion Gap 12 (12-20); Aspartate Amino Transferase 24 U/L (5-31); Blood Urea Nitrogen 11 mg/dL (9-16); Calcium 9.1 mg/dL (8.4-10.2); Carbon Dioxide 25 mmol/L (22-29); Chloride 108 mmol/L (96-108); Creatinine Clr Calc Pharmacy 145.2; Estimated Glomerular Filt Rate > 60; Potassium 3.8 mmol/L (3.3-5.1); Sodium 141 mmol/L (135-145); Total Protein 7.4 g/dL (6.5-8.0)
[2025-03-19 15:56] LABS: Troponin-I High Sensitivity < 2.7 ng/L (<3.5-17.0)
[2025-03-19 16:12] LABS: Resp Syncy Virus RNA Qual PCR NEGATIVE (Negative); SARS COV2 PCR INHOUSE NEGATIVE (Negative)
[2025-03-19 19:30] VITALS: BP 122/57; PULSE 67; RESP 16; TEMP 36.3; O2SAT 100
--- OUTSIDE RECORDS SUMMARY | 2025-03-19 19:31 | XMS_ITS | Clinical Summary ---
Author Organization [facility] Address [address] [place] [phone] Phone Care Team Providers Care Nuclear Engineering Technician Name Role Phone Unavailable Primary Care Provider [...] exists Varicella Vaccines Completed 06/11/2010, 08/05/2006 Insurance [facility] NON PCC
--- OUTSIDE RECORDS SUMMARY | 2025-03-19 19:31 | XMS_ITS | Encounter Summary ---
Author Organization [facility] Address [address] [place] [phone] Phone Care Team Providers Care Aws Developer Name Role Phone Vivienne Jenkins NP Primary Care Provider Nurys tinoco Encounter Details Date Type Department Care Team (Late st Contact Info) Description 08/18/2009 Documentation EM Family Medicine [facility] [place] [address] Family Medicine, Physician [facility] [place] [address] Social History Tobacco Use Types Packs/Day Years [...] on filedocumented in this encounter Care Teams Aws Developer Relationship Specialty Start Date End Date Vivienne Jenkins NP PCP - General 10/31/16 06/04/22 documented as of this encounter
--- OUTSIDE RECORDS SUMMARY | 2025-03-19 19:31 | XMS_ITS | Encounter Summary ---
Author Organization [facility] Address [id number] [place] [phone] Care Team Providers Care Tire Builder Name Role Phone Christian Soto MD Primary Care Provider Encounter Details Date Type Department Care Team (Late Contact Info) Description 03/10/2025 Results Follow-Up Adult [address] [phone] Christian Soto MD [address] [place] [address] Social History Tobacco Use Types Packs/Day Years [...] 06/06/2025 8:00 AM EDT Office Visit Adult [address] [phone] Gunjan Medina PA [address] [place], [place] 09/19/2025 3:30 PM EDT Office Visit Bariatric Surgery - [address] [phone] Nico Garrison MD [address] [place] [phone] documented as of this encounter Visit Diagnoses Not on filedocumented in this encounter Additional Health Concerns Assessment Noted Time PHQ-9 Depression Total Score: 16 06/03/ 025 10:00 AM EDT documented as of this encounter Care Teams Tire Builder Relationship Specialty Start Date End Date Christian Soto MD [address] [place] [phone] PCP - General Internal Medicine 12/19/24 documented as of this encounter
--- OUTSIDE RECORDS SUMMARY | 2025-03-19 19:31 | XMS_ITS | Encounter Summary ---
Author Organization [facility] Address [address] [place] [phone] Phone Care Team Providers Care Special Education Preschool Teacher Name Role Phone Vivienne Jenkins NP Primary Care Provider Nurys tinoco Encounter Details Date Type Department Care Team (Late st Contact Info) Description 03/29/2014 Documentation EM Family Medicine [facility] [place], [place] [phone] Family Medicine, Physician [facility] [place] [address] Social History Tobacco Use Types Packs/Day Years [...] on filedocumented in this encounter Care Teams Special Education Preschool Teacher Relationship Specialty Start Date End Date Vivienne Jenkins NP PCP - General 10/31/16 06/04/22 documented as of this encounter
--- OUTSIDE RECORDS SUMMARY | 2025-03-19 19:31 | XMS_ITS | Encounter Summary ---
Author Organization [facility] Address [address] [place] [phone] Phone Care Team Providers Care Staffing Director Name Role Phone Vivienne Jenkins NP Primary Care Provider Nurys tinoco Encounter Details Date Type Department Care Team (Late st Contact Info) Description 11/06/2016 Conversion Encounter [facility] - [address] [phone] Social History Tobacco Use Types Packs/Day Years [...] on filedocumented in this encounter Care Teams Staffing Director Relationship Specialty Start Date End Date Vivienne Jenkins NP PCP - General 10/31/16 06/04/22 documented as of this encounter
--- OUTSIDE RECORDS SUMMARY | 2025-03-19 19:31 | XMS_ITS | Encounter Summary ---
Author Organization [facility] Address [address] [place] [phone] Phone Care Team Providers Care Band Sawing Machine Operator Name Role Phone Vivienne Jenkins NP Primary Care Provider Nurys tinoco Encounter Details Date Type Department Care Team (Late st Contact Info) Description 11/30/2015 Documentation EM Family Medicine [facility] [place], [place] [phone] Family Medicine, Physician [facility] [place] [address] Social History Tobacco Use Types Packs/Day Years [...] on filedocumented in this encounter Care Teams Band Sawing Machine Operator Relationship Specialty Start Date End Date Vivienne Jenkins NP PCP - General 10/31/16 06/04/22 documented as of this encounter
--- OUTSIDE RECORDS SUMMARY | 2025-03-19 19:31 | XMS_ITS | Clinical Summary ---
Author Organization [address] Address [address] [place] [phone] Phone Care Team Providers Care Clinical Sociologist Name Role Phone Christian Soto MD Primary Care Provider Allergies Active Allergy Reactions Criticality Noted Date Comments Pineapple Swelling 09/21/2017 Medications EPINEPHrine (EpiPen 2-Wilfred) 0.3 mg/0.3 mL injection Inject 0.3 mL (0.3 mg total) into the thigh if needed for anaphylaxis. 2 each 06/03/2024 Active ondansetron (ZOFRAN) 4 mg tablet Take 1 tablet (4 mg total) by mouth every 8 (eight) hours if needed for nausea or vomiting. 90 tablet 01/06/2025 Active phentermine 15 mg capsuleIndicatio ns:Class 2 obesity due to excess calories with body mass index (BMI) of 36.0 to 36.9 in adult, unspecified whether serious comorbidity present Take 1 capsule (15 mg total) by mouth 1 (one) time each day before breakfast. Max Daily Amount: 15 mg 30 each 03/15/2025 06/14/19 26 Active topiramate (Topamax) 50 mg tabletIndication s:Class 2 obesity due to excess calories with body mass index (BMI) of 36.0 to 36.9 in adult, unspecified whether serious comorbidity present Take 1 tablet (50 mg total) by mouth at bedtime. 30 each 2 03/15/2025 06/14/19 26 Active Active Problems Problem Noted Date Diagnosed Date Chlamydia infection 06/06/2024 Anxiety and depression 02/22/2020 Acute frontal sinusitis 01/14/2019 Snoring 11/09/2018 Overview (05/25/2024): 11/09/18 snoring, thick neck, morbid obesity, acanthosis, father with REINALDO on cpap, referred for sleep study Hepatic steatosis 05/12/2018 Overview (05/25/2024): 03/08/[address] [facility] [address] Souza - evaluating her for other cause [...] should be seen in Endocrine Clinic at [facility] Hgba1c 5.4 on 11/07 Constipation 09/21/2017 Overview (05/25/2024): 11/07 - occastionally only now, miralax prn 03/10/16 - Miralax. Increase fiber in diet, encourage fluids Assessment & Plan (06/03/2024 11:29 AM EDT): Continues to have constipation. Request refill for MiraLAX. Encounters Date Type Department Care Team Description 03/10/2025 Results Follow-Up Adult Medicine [address] [phone] Christian Soto MD 03/09/2025 10:05 AM EST Lab Draw Station - [address] [place] [address] Class 2 obesity due to excess calories with body mass index (BMI) of 36.0 to 36.9 in adult, unspecified whether serious comorbidity present 03/09/2025 9:30 AM EST Consult Bariatric Surgery - [place] [address] [phone] Nico Garrison MD Class 2 obesity due to excess calories with body mass index (BMI) of 36.0 to 36.9 in adult, unspecified whether serious comorbidity present (Primary Dx) 01/19/2025 Results Follow-Up [facility] Medicine [address] [phone] Christian Soto MD 01/19/[address] [phone] Christian Soto MD 01/18/2025 9:09 AM EDT - 01/18/2025 11:[address] [facility] Nuclear Medicine [address] [place] [address] Epigastric pain; RUQ abdominal pain; Nausea and vomiting, unspecified vomiting type Discharge Disposition: Home or Self Care 01/06/2025 10:30 AM EDT Office Visit [address] [phone] Christian Soto MD Epigastric pain (Primary Dx); RUQ abdominal pain; Nausea and vomiting, unspecified vomiting type; Class 2 obesity due to excess calories with body mass index (BMI) of 37.0 to 37.9 in adult, unspecified whether serious comorbidity present 12/19/2024 Telephone Adult [address] [phone] Christian Soto MD from Last 3 Months Immunizations Immunization Administration Dates Next Due DTaP (Infanrix) 6wks to less than 7yo ,10/16/2006,05/08/2006,01/21,2005 [id number] (Pentacel) 2mo to less than 5yo 10/16/2006,05/08/2006,01/21/2006,09/24 [...] any issues. PCP requested a copy of [facility] Acanthosis nigricans 09/21/2017 DX:Acanthos is nigricans; COMMENT: 11/21/15 ? Insulin resistance - should be seen in Endocrine Clinic at [facility] BMI (body mass index), pedia tric, > [...] 09/21/2017 DX:React yina airway disease; COMMENT: Onset . Albuterol Sleep disturbance 09/21/2017 DX:Sleep distu rbance; COMMENT: 11/21/15 counseling might be helpful if it is stress related. Re-establish a good school year sleep pattern. UTI (urinary tract infection) 09/21/2017 DX :UTI (urinary tract infection); COMMENT: 08/2014 Bactrim, 2011 ? Pyelonephritis- seen at [facility]. Ceftriaxone. Never went to see Urologist. Was referred to [facility] but never made it there either [...] an kle pain; COMMENT: 12/08 referred to [facility], elyse showed on 11/19/2017 UTI (urinary tract infection) 09/21/2017 DX :UTI (urinary tract infection); COMMENT: 11/07 no UTI in past 3+ yrs 08/2014 Bactrim, 2011 ? Pyelonephritis- seen at [facility]. Ceftriaxone. Never went to see Urologist. Was referred to [facility] but never made it there either [...] file Growth Chart Information Age Height Weight [id number] th Percentile BMI Percentile Head Circum Head [...] 8:00 AM EDT Office Visit Adult Medicine [facility] [address] [place], [place] [phone] Gunjan Medina PA [address] [place], [place] 09/19/2025 3:30 PM EDT Office Visit Bariatric Surgery - [place] [address] [facility] [address] [place] [address] Nico Garrison MD [address] [place] [phone] Health Maintenance Due Date Last Done Comments Drug Screen 2005 Non-Opioid Controlled Substance Agreement 2005 Pneumococcal Vaccine: Pediatrics (0 to 5 Years) [...] - 200 mg/dL 03/09/2025 2:40 PM EST [facility] Triglycerides 76 0 - 150 mg/dL 03/09/2025 2:40 PM [facility] HDL 43 >=40 mg/dL 03/09/2025 2:40 PM [facility] LDL Calculated 70 0 - 100 mg/dL 03/09/2025 2:40 PM [facility] Comment:Estimated LDL is rudolph culated using the Friedewald equation: Total cholesterol - HDL cholesterol - (Triglycerides/5) VLDL Cholesterol Rudolph 15.2 mg/dL 03/09/2025 2:40 PM [facility] Non HDL Chol. (LDL+VLDL) 85 <145 mg/dL 03/09/2025 2:40 PM [facility] Chol/HDL Ratio 3.0 0.0 - 4.4 03/09/2025 2:40 PM [facility] Blood Venous blood specimen / Unknown Venipuncture / Unknown 03/09/2025 10:06 AM EST 03/09/2025 10:06 AM EST us Nico Garrison MD LAB BLOOD ORDERABLES Final R esult [facility] [address] [place] [address], [place] [phone] * Thyroid stimulating hormone (03/09/2025 10:06 AM EST) [facility] TSH 2.35 0.40 - 4.00 mcIU/mL 03/09/2025 2:36 PM EST [facility] Blood Venous blood specimen / Unknown Venipuncture / Unknown 03/09/2025 10:06 AM EST 03/09/2025 10:06 AM EST Nico Garrison MD LAB BLOOD ORDERABLES Final R esult Performing Organization Address City/[facility]/ZIP Co de Phone Number [facility] [address] [place] [address], [place] [phone] * Hemoglobin A1c (03/09/2025 10:06 AM EST) [facility] Hemoglobin A1C 4.5 <6.5 % LAB CHEMISTRY METHOD 03/09/2025 3:16 PM EST [facility] Mean Bld Glu Estim. 82 mg/dL LAB CHEMISTRY METHOD 03/09/2025 3:16 PM EST [facility] Blood Venous blood specimen / Unknown Venipuncture / Unknown 03/09/2025 10:06 AM EST 03/09/2025 10:06 AM EST us Nico Garrison MD LAB BLOOD ORDERABLES Final R esult Performing Organization Address City/[facility]/ZIP Co de Phone Number [facility] [address] [place] [address], [place] [phone] * Comprehensive metabolic panel (03/09/2025 10:06 AM EST) [facility] Sodium 139 133 - 145 mmol/L 03/09/2025 2:40 PM EST [facility] Potassium 4.2 3.5 - 5.5 mmol/L 03/09/2025 2:40 PM EST [facility] Chloride 105 96 - 110 mmol/L 03/09/2025 2:40 PM EST [facility] CO2 25 21 - 32 mmol/L 03/09/2025 2:40 PM [facility] Anion Gap 9 3 - 11 03/09/2025 2:40 PM [facility] Glucose 81 70 - 100 mg/dL 03/09/2025 2:40 PM [facility] BUN 11 5 - 25 mg/dL 03/09/2025 2:40 PM [facility] Creatinine 0.88 0.50 - 1.10 mg/dL 03/09/2025 2:40 PM [facility] eGFR 97 >=60 mL/min/1. 73m2 03/09/2025 2:40 PM [facility] Comment:Calculation based on the Chronic Kidney Disease Epidemiology Collaboration (CKD-EPI) equation refit without adjustment for race. BUN/Creatinine Ratio 12.5 03/09/2025 2:40 PM [facility] Calcium 8.8 8.5 - 10.5 mg/dL 03/09/2025 2:40 PM [facility] AST (SGOT) 23 10 - 42 unit/L 03/09/2025 2:40 PM [facility] ALT (SGPT) 21 10 - 60 unit/L 03/09/2025 2:40 PM [facility] Alkaline Phosphatase 66 42 - 121 unit/L 03/09/2025 2:40 PM [facility] Total Protein 7.1 6.0 - 8.0 g/dL 03/09/2025 2:40 PM [facility] Albumin 4.3 3.2 - 5.0 g/dL 03/09/2025 2:40 PM [facility] Total Bilirubin 0.4 0.0 - 1.4 mg/dL 03/09/2025 2:40 PM [facility] Blood Venous blood specimen / Unknown Venipuncture / Unknown 03/09/2025 10:06 AM EST 03/09/2025 10:06 AM EST us Nico Garrison MD LAB BLOOD ORDERABLES Final R esult [facility] [address] [place] [address], [place] [phone] * NM Hepatobiliary System Imaging (01/18/2025 11:02 AM EDT) Anatomical Region Laterality Modality Body Nuclear Medicine 01/18/2025 3:37 PM EDT Impressions 01/18/2025 3:39 PM EDT Impression: No evidence of cystic or common bile duct obstruction. [place] PA ([id number]) -------- FINAL REPORT -------- Dictated By: Jojo Naranjo Dictated Date: 01/18/2025 15:37 ET Assigned Physician: Jojo Naranjo Reviewed and Electronically Signed By: Jojo Naranjo Signed Date: 01/18/2025 15:39 ET Workstation ID: [id number] Transcribed By: Self Edit Transcribed Date: 01/18/2025 [...] or common bile duct obstruction. Telerad INESSA ([id number]) -------- FINAL REPORT -------- Dictated By: Jojo Naranjo Dictated Date: 01/18/2025 15:37 ET Assigned Physician: Jojo Naranjo Reviewed and Electronically Signed By: Jojo Naranjo Signed Date: 01/18/2025 15:39 ET Workstation ID: [id number] Transcribed By: Self Edit Transcribed Date: 01/18/2025 15:37 ET us Christian Soto MD IMG NM PROCEDURES Elizabeth l Result * (ABNORMAL) Chlamydia trachomatis and Neisseria gonorrhoeae molecular study (06/03/2024 9:51 AM EDT) Neisseria gonorrhoeae PCR Negative Negative LAB MOLECULAR DIAGNOSTICS METHOD 06/05/2024 3:16 PM EDT [facility] Chlamydia trachomatis PCR Positive(A) Negative LAB MOLECULAR DIAGNOSTICS METHOD 06/05/2024 3:16 PM EDT [facility] Swab Urine specimen from urethra / Unknown Non-blood Collection / Unknown 06/03/2024 9:51 AM EDT 06/03/2024 9:51 AM EDT us Sherry Long MD LAB MICROBIOLOGY - GENERAL CHAVEZ VALENTINO Final Result [facility] [address] [place] [address], from Last 3 Months or Most Recently Relevant to Health Maintenance Insurance [place] [address] Care Teams Clinical Sociologist Relationship Specialty Start Date End Date Christian Soto MD [address] [place] [phone] PCP - General Internal Medicine 12/19/24
--- OUTSIDE RECORDS SUMMARY | 2025-03-19 19:31 | XMS_ITS | Encounter Summary ---
Author Organization [facility] Address [address] [place] [phone] Phone Care Team Providers Care Urologic Nurse Name Role Phone Vivienne Jenkins NP Primary Care Provider Nurys tinoco Encounter Details Date Type Department Care Team (Late st Contact Info) Description 12/26/2015 Documentation EM Family Medicine [facility] [place] [address] Family Medicine, Physician [facility] [place] [address] Social History Tobacco Use Types Packs/Day Years [...] on filedocumented in this encounter Care Teams Urologic Nurse Relationship Specialty Start Date End Date Vivienne Jenkins NP PCP - General 10/31/16 06/04/22 documented as of this encounter
--- OUTSIDE RECORDS SUMMARY | 2025-03-19 19:31 | XMS_ITS | Encounter Summary ---
Author Organization [facility] Address [address] [place] [phone] Care Team Providers Care Asbestos Pipe Supervisor Name Role Phone Christian Soto MD Primary Care Provider Encounter Details Date Type Department Care Team (Late Contact Info) Description 01/19/2025 Results Follow-Up Adult [address] [phone] Christian Soto MD [address] [place] [address] Social History Tobacco Use Types Packs/Day Years [...] 06/06/2025 8:00 AM EDT Office Visit Adult [address] [phone] Gunjan Medina PA [address] [place], [place] 09/19/2025 3:30 PM EDT Office Visit Bariatric Surgery - [address] [phone] Nico Garrison MD [address] [place] [phone] documented as of this encounter Visit Diagnoses Not on filedocumented in this encounter Additional Health Concerns Assessment Noted Time PHQ-9 Depression Total Score: 16 06/03/ 025 10:00 AM EDT documented as of this encounter Care Teams Asbestos Pipe Supervisor Relationship Specialty Start Date End Date Christian Soto MD [address] [place] [phone] PCP - General Internal Medicine 12/19/24 documented as of this encounter
--- OUTSIDE RECORDS SUMMARY | 2025-03-19 19:31 | XMS_ITS | Encounter Summary ---
Author Organization [facility] Address [address] [place] [phone] Phone Care Team Providers Care Application Performance Engineer Name Role Phone Vivienne Jenkins NP Primary Care Provider Nurys tinoco Encounter Details Date Type Department Care Team (Late st Contact Info) Description 12/26/2015 Documentation EM Family Medicine On license of [facility] [place] [address] Family Medicine, Physician On [facility] [place] [address] Social History Tobacco Use Types Packs/Day Years [...] on filedocumented in this encounter Care Teams Application Performance Engineer Relationship Specialty Start Date End Date Vivienne Jenkins NP PCP - General 10/31/16 06/04/22 documented as of this encounter
--- OUTSIDE RECORDS SUMMARY | 2025-03-19 19:31 | XMS_ITS | Encounter Summary ---
Author Organization [facility] Address [address] [place] [phone] Phone Care Team Providers Care Cloth Dye Range Operator Name Role Phone Vivienne Jenkins NP Primary Care Provider Nurys tinoco Encounter Details Date Type Department Care Team (Late st Contact Info) Description 03/28/2014 Documentation EM Family Medicine [facility] [place], [place] [phone] Family Medicine, [place]ician [place] [address] Social History Tobacco Use Types Packs/Day Years [...] on filedocumented in this encounter Care Teams Cloth Dye Range Operator Relationship Specialty Start Date End Date Vivienne Jenkins NP PCP - General 10/31/16 06/04/22 documented as of this encounter
--- OUTSIDE RECORDS SUMMARY | 2025-03-19 19:31 | XMS_ITS | Encounter Summary ---
Author Organization [facility] Address [address] [place] [phone] Phone Care Team Providers Care Manager Fast Food Name Role Phone Vivienne Jenkins NP Primary Care Provider Nurys tinoco Encounter Details Date Type Department Care Team (Late st Contact Info) Description 09/07/2012 Documentation EM Family Medicine [facility] [place] [place], [place] [phone] Family Medicine, Physician [facility] [place] [address] Social History Tobacco Use Types Packs/Day Years [...] on filedocumented in this encounter Care Teams Manager Fast Food Relationship Specialty Start Date End Date Vivienne Jenkins NP PCP - General 10/31/16 06/04/22 documented as of this encounter
[2025-03-19 19:32] VITALS: BP 122/57; PULSE 67; RESP 16; TEMP 36.3; O2SAT 100
== END 2025-03-19 19:33 | disposition home or self-care (01) ==
PROVIDERS: Physician Assistant Medical; Emergency Provider Emergency Medicine
DX: R07.89 Other chest pain (principal); V89.2XXA Person injured in unspecified motor-vehicle accident, traffic, initial encounter; Y93.89 Activity, other specified; Y92.89 Other specified places as the place of occurrence of the external cause; Y99.8 Other external cause status; Z79.899 Other long term (current) drug therapy; Z87.440 Personal history of urinary (tract) infections; Z03.818 Encounter for observation for suspected exposure to other biological agents ruled out
CPT/HCPCS: 71250; 80053; 84484; 84702; 85025; 87637; 93005; 99284

== ENCOUNTER → 2025-03-19 15:17 | Outpatient (BNV) | payer OTHER, SELFPAY | PROVIDERS: Emergency Provider Emergency Medicine; Visit Provider Internal Medicine | DX: R07.9 Chest pain, unspecified (principal) | CPT/HCPCS: 93010 ==

== ENCOUNTER → 2025-03-19 15:17 | Outpatient (BNV) | payer OTHER, SELFPAY | PROVIDERS: Emergency Provider Emergency Medicine; Visit Provider Student in an Organized Health Care Education/Training Program | DX: R07.89 Other chest pain (principal) | CPT/HCPCS: 71250 ==